=== PATIENT | female | born 1940 | race Asian ===

== ENCOUNTER → 2017-11-02 | Outpatient (CLI) | payer MEDICARE, OTHER ==
[~2017-11-02] MED LIST: ALLO300T2 PO; ATOR10TA84 PO; CARV25TA32 PO; DOCU250C16 PO; FOLI1TAB15 PO; INSLAN SQ; INSNOV SQ; ISOS30TA6 PO; LEVO100T4 PO; NIFE60TA21 PO; NITR.4 SL; OLME40 PO; RANO500T3 PO; RENAL VITAMIN PO; SEVEC800 PO
== END | disposition home or self-care (01) ==
LOC: CARDPV 08:28
PROVIDERS: ATTEND Specialist
DX: R29.6 Repeated falls (principal)
CPT/HCPCS: 95816